=== PATIENT | female | born 1955 | race Asian ===

== ENCOUNTER 2017-05-22 09:34 | Outpatient (CLI) | payer BC, OTHER ==
--- NOTE | 2017-05-22 10:49 | DIAGNOSTIC IMAGING REPORT ---
PROCEDURE: DEXA BONE DENSITY STUDY CLINICAL INDICATION: PREVENTIVE HEALTH CARE COMPARISON: None. FINDINGS: LUMBAR SPINE: Bone mineral density 0.916, T-score -1.2, osteopenia LEFT HIP: Bone mineral density 0.785, T-score -1.3, osteopenia. LEFT FEMORAL NECK: Bone mineral density 0.722, T-score -1.1, osteopenia (T score greater or equal to -1.0 to: NORMAL) (T score from -1.1 to -2.4: OSTEOPENIA) (T score ess than or equal to -2.5: OSTEOPOROSIS) IMPRESSION: 1. Lumbar spine and left hip osteopenia 2. 10-year fracture risk: Major osteoporotic fracture 3.4%, hip fracture 0.2%.
--- NOTE | 2017-05-22 12:29 | DIAGNOSTIC IMAGING REPORT ---
PROCEDURE: MG BILATERAL SCREENING W/CAD INDICATION: SCREENING TECHNIQUE: Standard CC and MLO views bilaterally. Computer aided detection was used. COMPARISON: 01/29/2015, 12/02/2013 FINDINGS: Moderately dense fibroglandular tissue is present bilaterally. Developing focal asymmetry in the medial right breast anteriorly at the fat glandular interface. This is only seen on the CC view. No architectural distortion. Elsewhere, no suspicious clustered microcalcification. IMPRESSION: 1. Developing right breast focal asymmetry for which further evaluation with special mammographic views and ultrasound is recommended. 2. The patient will be contacted. RESULT CODE: 0- Incomplete; needs additional evaluation. A. A negative report should not delay biopsy if a dominant or clinically suspicious mass is present. 10-15% of cancers are not identified by x-ray. B. A negative report may reinforce clinical impression. C. Adenosis and dense breasts may obscure an underlying neoplasm. D. False positive reports average 6-10%. E.. A yearly screening mammogram is recommended. A reminder letter will be scheduled.
== END 2017-05-22 23:00 | disposition home or self-care (01) ==
LOC: XR SRH 09:34
DX: M85.89 Other specified disorders of bone density and structure, multiple sites (principal); Z12.31 Encounter for screening mammogram for malignant neoplasm of breast

== ENCOUNTER 2017-06-03 12:58 | Outpatient (CLI) | payer OTHER ==
--- NOTE | 2017-06-03 14:46 | DIAGNOSTIC IMAGING REPORT ---
PROCEDURE: MG UNILATERAL DIAG-RT W/CAD INDICATION: Follow-up right breast asymmetry. TECHNIQUE: True lateral digital view of the right breast. In addition, spot compression CC and MLO views were obtained of the medial right breast (region of clinical concern). COMPARISON: Comparison made to screening mammogram studies on 05/22/2017, 01/29/2015, and 12/02/2013. FINDINGS: MAMMOGRAM: Computer-aided detection applied. Moderately dense parenchymal pattern. There is no evidence of abnormality in the medial right breast. Findings are most compatible with asymmetric normal parenchyma. No evidence of mass or suspicious calcification. Right breast ultrasound is not indicated at this time. IMPRESSION: 1. Negative mammogram. No evidence of mass or suspicious calcification. 2. Resume routine screening schedule (April 2018). 3. Findings discussed with the patient. RESULT CODE: 1- Negative. A. A negative report should not delay biopsy if a dominant or clinically suspicious mass is present. 10-15% of cancers are not identified by x-ray. B. A negative report may reinforce clinical impression. C. Adenosis and dense breasts may obscure an underlying neoplasm. D. False positive reports average 6-10%. E.. A yearly screening mammogram is recommended. A reminder letter will be scheduled.
== END 2017-06-03 23:00 ==
LOC: MAM SRH 12:58
DX: N64.89 Other specified disorders of breast (principal)